=== PATIENT | male | born 1955 | race Caucasian/White ===

== ENCOUNTER 2019-10-06 13:11 | Emergency (ER) | payer MEDICARE, BC ==
[2019-10-06] MEDS ORDERED: Bupivacaine 0.5% 10 ML SDV INJECT ONE (13:17)
--- NOTE | 2019-10-06 13:18 | EDM.PDOC ---
ED HPI GENERAL MEDICAL PROBLEM - General Stated Complaint: R HAND INJURY Time Seen by Provider: 10/06/19 13:18 Source of Information: Reports: Patient History Limitations: Reports: No Limitations - History of Present Illness INITIAL COMMENTS - FREE TEXT/NARRATIVE: 64-year-old male with a left thumb injury, he has a laceration of the pulp of the thumb from a table saw. No other injury. Onset: Sudden Duration: Minutes: (Just within the last 10 minutes) Location: Reports: Upper Extremity, Left Associated Symptoms: Reports: No Other Symptoms Left Finger-Thumb Pain Score (Numeric/FACES): 10 - Related Data Allergies Allergy/AdvReac Type Severity Reaction Status Date / Time No Known Allergies Allergy Verified 03/23/13 20:03 Home Meds: Home Meds Acyclovir [Zovirax] 400 mg PO DAILY 10/06/19 [History] Diltiazem HCl [Diltiazem 24Hr Cd] 180 mg PO DAILY 10/06/19 [History] Fluticasone/Salmeterol [Advair 100-50] 1 puff INH DAILY 10/06/19 [History] Incruse 1 dose IH DAILY 10/06/19 [History] Losartan [Cozaar] 25 mg PO DAILY 10/06/19 [History] Omeprazole 20 mg PO DAILY 10/06/19 [History] Ranitidine HCl [Ranitidine] 300 mg PO BEDTIME 10/06/19 [History] Tiotropium [Spiriva Handihaler] 1 dose IH DAILY 10/06/19 [History] Review of Systems - Review of Systems Review Of Systems: See Below Constitutional: Denies: Fever Respiratory: Reports: No Symptoms Cardiovascular: Reports: No Symptoms Neurological: Reports: No Symptoms ED EXAM, GENERAL - Physical Exam Exam: See Below Exam Limited By: No Limitations General Appearance: Alert, Anxious, Mild Distress Head: Atraumatic Respiratory/Chest: No Respiratory Distress Extremities: Other (Exam is otherwise limited to the left hand. The patient has a 2 x 3 cm angled laceration and avulsion of the pulp of the left thumb.) Course - Vital Signs Last Recorded V/S: Last Vital Signs Temp 98.4 F 10/06/19 13:27 Pulse 65 10/06/19 13:27 Resp 16 10/06/19 13:27 BP 160/81 H 10/06/19 13:27 Pulse Ox 96 10/06/19 13:27 - Orders/Labs/Meds Orders: Active Orders 24 hr Category Date Time Status Vaccines to be Administered [RC] PER UNIT ROUTINE Care 10/06/19 14:07 Ordered Fingers Thumb Rt F5 [CR] Stat Exams 10/06/19 13:16 Taken Meds: Medications Discontinued Medications Generic Name Dose Route Start Last Admin Trade Name Jayleen PRN Reason Stop Dose Admin Bacitracin 1 dose 10/06/19 14:07 10/06/19 14:17 Bacitracin Oint 1 Gm TOP 10/06/19 14:08 1 dose ONETIME ONE Administration Bupivacaine HCl 10 ml 10/06/19 13:17 10/06/19 13:54 Sensorcaine-Mpf 0.5% INJECT 10/06/19 13:18 10 ml ONETIME ONE Administration Diphtheria/Tetanus/Acell Pertussis 0.5 ml 10/06/19 14:07 10/06/19 14:13 Adacel IM 10/06/19 14:08 0.5 ml .ONCE ONE Administration - Re-Assessments/Exams Free Text/Narrative Re-Assessment/Exam: 10/06/19 14:11 An x-ray was taken and it appears that the pulp was not involved, there is no obvious fracture. Consultation with hand surgery was done in [place], and the patient will recheck next Tuesday but no repair is needed at this time. The wound was cleansed thoroughly with saline after anesthesia was 0.5% Sensorcaine. It was covered with bacitracin, Adaptic, and a tube gauze and the patient will be started on cephalexin and given hydrocodone for pain. Dr. Piper, hand surgeon at [facility] in [place] would like to recheck the patient on Tuesday. Departure - Departure Time of Disposition: 14:34 Disposition: Home, Self-Care 01 Clinical Impression: Laceration of left thumb without damage to nail Qualifiers: Encounter type: initial encounter Foreign body presence: without foreign body Qualified Code(s): S61.012A - Laceration without foreign body of left thumb without damage to nail, initial encounter - Discharge Information Instructions: Laceration Care, Adult, VIS, DTaP (Diphtheria, Tetanus, Pertussis ) Vaccine - [facility] (03/03/2018) Referrals: PCP,None [Primary Care Provider] - Forms: ED Department Discharge Care Plan Goals: Keep wound covered, and call Gavin on Tuesday to make an appointment with Dr. Piper at the orthopedic clinic at [address] [facility] on Tuesday of next week. Take antibiotic as prescribed, ibuprofen or naproxen for pain and add stronger pain medication as needed. Elevating the thumb will help. Sepsis Event Note - Focused Exam Vital Signs: Vital Signs Temp Pulse Resp BP Pulse Ox 10/06/19 13:27 98.4 F 65 16 160/81 H 96 10/06/19 13:18 98.4 F 65 16 160/81 H 96 Date Exam was Performed: 10/06/19 Time Exam was Performed: 14:34 - My Orders Last 24 Hours: My Active Orders 10/06/19 13:16 Fingers Thumb Rt F5 [CR] Stat 10/06/19 14:07 Vaccines to be Administered [RC] PER UNIT ROUTINE - Assessment/Plan Last 24 Hours: My Active Orders 10/06/19 13:16 Fingers Thumb Rt F5 [CR] Stat 10/06/19 14:07 Vaccines to be Administered [RC] PER UNIT ROUTINE
[2019-10-06] MEDS ORDERED: Diphtheria,Pertussis(Acell),Tetanus Vaccine 0.5 ML SDV IM ONE (14:07)
[2019-10-06] MEDS ORDERED: Bacitracin Oint 1 GM U/D Packet TOP ONE (14:07)
--- NOTE | 2019-10-08 10:35 | CR ---
Fingers Thumb Rt F5 CLINICAL HISTORY: Injury FINDINGS: There is moderate soft tissue deformity of the distal thumb. There is a marginal articular fracture of the proximal phalanx at the interphalangeal joint. A minimal nondisplaced the tuft fracture of the distal phalanx is not excluded. IMPRESSION: Tiny marginal fracture at the proximal phalanx at the IP joint Minimal nondisplaced tuft fracture is not excluded
== END 2019-10-06 14:38 | disposition home or self-care (01) ==
LOC: JP.ED 13:11
DX: S61.012A Laceration without foreign body of left thumb without damage to nail, initial encounter (principal); Z23 Encounter for immunization; Z79.899 Other long term (current) drug therapy; W27.0XXA Contact with workbench tool, initial encounter
CPT/HCPCS: 64450; 73140; 90471; 90715; 99283; J3490

== ENCOUNTER → 2021-01-23 | Day surgery (SDC) | payer MEDICARE, BC ==
[~2021-01-23] MED LIST: Albuterol/Ipratropium 3.0-0.5 MG/3 ML Neb Soln NEB ONE; Dextrose 5%-Lactated Ringers 1,000 ML IV SCH; Glycopyrrolate 0.2 MG/ML 2 ML SDV IVPUSH ONE; Midazolam 1 MG/ML 2 ML SDV ONE; Propofol 200 MG/20 ML SDV ONE; fentaNYL 100 MCG/2 ML SDV ONE
--- NOTE | 2021-02-01 13:11 | OR ---
DATE OF PROCEDURE: 01/23/2021 SURGEON: Jim Larsen MD PREOPERATIVE DIAGNOSIS: Longstanding gastroesophageal reflux disease with recent development of diarrhea and loose bowel movements. POSTOPERATIVE DIAGNOSES: 1. Longstanding gastroesophageal reflux disease with recent development of diarrhea and loose bowel movements. 2. Upper GI endoscopy showing: a. Small hiatal hernia with minimal inflammation at esophagogastric junction. b. Mild antral gastritis and duodenitis. 3. Extensive uncomplicated left colonic diverticulosis. OPERATIVE PROCEDURE: 1. Esophagogastroduodenoscopy with: a. Biopsy of esophagogastric junction for histologic evaluation. b. Biopsies of antrum for CLOtest. 2. Flexible colonoscopy with random colorectal biopsies to rule out microscopic colitis. ANESTHESIA: IV sedation. INDICATIONS FOR PROCEDURE: A 65-year-old male presenting with longstanding gastroesophageal reflux disease. He presently is on omeprazole 20 mg a day. Recently had increased reflux symptoms along with some problems with diarrhea or frequent loose bowel movements. Both of these problems stopped after he was started on some Lomotil. Presently, his reflux symptoms are minimal and he now has had some episodes of constipation. Plan is to proceed with an upper and lower endoscopy for diagnostic purposes. Potential risks including bleeding and perforation were discussed, and the patient wishes to proceed. DETAILS OF PROCEDURE: The patient was taken to the operating room, placed in a left lateral decubitus position. IV sedation was administered after which the upper GI endoscope was passed orally through the length of the esophagus, into the stomach with retroflexion view of the fundus, and thereafter through the pyloric channel and into the proximal duodenum. Findings included a small hiatal hernia with minimal inflammation at esophagogastric junction. There was no gross upward extension of the columnar mucosa or stricturing within the stomach. There was some mild patchy antritis and proximal duodenitis was also noted beyond the duodenal bulb with duodenal findings normalized. At this point, biopsies were obtained from the antrum and sent for CLOtest for H. pylori and multiple biopsies were then obtained from the esophagogastric junction and sent for histologic evaluation to rule out problems such as Ortiz's esophagus. The scope was then withdrawn and the procedure then concluded. The initial digital rectal exam was performed and was uncomplicated. The colonoscope was passed into the rectum which revealed unremarkable hemorrhoidal columns. The scope was eventually passed to the cecum. The prep was fairly good with only a small amount of liquid stool being present. The patient did have some uncomplicated left colonic diverticulosis. Otherwise, there were no areas of obvious colitis or polyp formation. Multiple biopsies were then obtained from the cecum down through the rectum to rule out microscopic colitis given the patient's recent history and the procedure then concluded. Minimal bleeding from the biopsy sites was seen. The patient will be continued on the omeprazole 20 mg a day for now and then will be following up with Gary Javed CNP in 2 to 3 weeks. Jim Larsen MD /[id number]
== END ==
LOC: JP.SDS 06:34
PROVIDERS: ATTEND Surgery
DX: K29.80 Duodenitis without bleeding (principal); K21.00 Gastro-esophageal reflux disease with esophagitis, without bleeding; K29.50 Unspecified chronic gastritis without bleeding; K57.30 Diverticulosis of large intestine without perforation or abscess without bleeding; K44.9 Diaphragmatic hernia without obstruction or gangrene; K64.9 Unspecified hemorrhoids; J44.9 Chronic obstructive pulmonary disease, unspecified; I10 Essential (primary) hypertension; Z88.8 Allergy status to other drugs, medicaments and biological substances
CPT/HCPCS: 43239; 45380; 87081; 94640; J2250; J2704; J3010; J3490; J7121; J7620-GY

== ENCOUNTER 2021-11-12 15:01 | Emergency (ER) | payer MEDICARE, BC ==
[2021-11-12] MEDS ORDERED: Sodium Chloride 0.9% 10 ML Syringe FLUSH PRN (15:09)
[2021-11-12 15:48] LABS: TROPONIN I HIGH SENSITIVITY 9.5 pg/mL (<=60.3)
[2021-11-12] MEDS ORDERED: Alteplase 81 MG in Premix Bag 1 BAG IV ONE (16:20)
== END 2021-11-12 17:22 ==
LOC: JP.ED 15:01
DX: I69.320 Aphasia following cerebral infarction (principal); I69.322 Dysarthria following cerebral infarction; I10 Essential (primary) hypertension; Z88.8 Allergy status to other drugs, medicaments and biological substances; Z79.899 Other long term (current) drug therapy; Z87.891 Personal history of nicotine dependence; Z20.822 Contact with and (suspected) exposure to COVID-19; Z92.82 Status post administration of tPA (rtPA) in a different facility within the last 24 hours prior to admission to current facility
CPT/HCPCS: 36415; 37195; 70450; 80048; 81001; 84484; 85025; 85610; 85730; 87449; 93005; 93010; 99284; 99285; J2997; J3490; U0002

== ENCOUNTER 2022-11-08 10:56 | Emergency (ER) | payer MEDICARE, BC ==
[2022-11-08] MEDS ORDERED: Sodium Chloride 0.9% 10 ML Syringe FLUSH PRN (11:42)
[2022-11-08] MEDS ORDERED: fentaNYL 100 MCG/2 ML SDV IVPUSH ONE (11:44)
[2022-11-08] MEDS ORDERED: Sodium Chloride 0.9% 1,000 ML IV SCH (11:45)
[2022-11-08 12:23] LABS: ESTIMATED GFR 96 mL/min (>60)
[2022-11-08] MEDS ORDERED: Iopamidol 612 MG/ML 100 ML Bottle IV ONE (12:31)
[2022-11-08] MEDS ORDERED: Sodium Chloride 0.9% 50 ML IV SCH (12:45)
[2022-11-08] MEDS ORDERED: Ketorolac 30 MG/ML SDV IM ONE (14:20)
[2022-11-08] MEDS ORDERED: Ketorolac 30 MG/ML SDV IVPUSH ONE (14:36)
== END 2022-11-08 15:32 | disposition home or self-care (01) ==
LOC: JP.ED 10:56
DX: M54.2 Cervicalgia (principal); I10 Essential (primary) hypertension; M19.90 Unspecified osteoarthritis, unspecified site; Z88.8 Allergy status to other drugs, medicaments and biological substances; Z79.899 Other long term (current) drug therapy
CPT/HCPCS: 36415; 72127; 72127-26; 76377; 80053; 83605; 84484; 85025; 86140; 96361; 96374; 96375; 99283; 99284-25; J1885; J3010; J3490; J7030; Q9967